=== PATIENT | male | born 1995 | race Hispanic/Latino ===

== ENCOUNTER 2017-01-21 19:54 | Emergency (ER) | payer SELFPAY ==
[~2017-01-21 19:54] MED LIST: HYDROXYZINE50 MG PO; PREDNICOT20 MG PO
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
[2017-01-21] MEDS ORDERED: CYCLOBENZAPRINE5 M2 PO (22:00)
[2017-01-21] MEDS ORDERED: IBUPROFEN800 M1 PO (22:00)
[2017-01-21 22:38] VITALS: BP 134/80
== END 2017-01-21 22:39 ==
LOC: ERH 19:54
DX: M62.838 Other muscle spasm (principal); M25.512 Pain in left shoulder; M54.5 Low back pain; V49.40XA Driver injured in collision with unspecified motor vehicles in traffic accident, initial encounter; Y92.9 Unspecified place or not applicable
CPT/HCPCS: 72100; 73562-LT